=== PATIENT | female | born 1995 | race Hispanic/Latino ===

== ENCOUNTER 2019-05-30 20:06 | Emergency (ER) | payer OTHER, SELFPAY ==
--- OUTSIDE RECORDS SUMMARY | 2019-05-30 20:09 | XMS REPORT ---
:1995 Author Organization eClinicalWorks Care Team Providers Name Role Phone [facility] Provider Role Unavailable Allergies, Adverse Reactions, Alerts Substance Reaction Event Type N.K.D.A. 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
--- OUTSIDE RECORDS SUMMARY | 2019-05-30 20:09 | XMS REPORT ---
:1995 Author Organization eClinicalWorks Care Team Providers Name Role Phone [facility] Provider Role Unavailable Allergies, Adverse Reactions, Alerts Substance Reaction Event Type N.K.D.A. 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
[2019-05-30] MEDS ORDERED: SILVER SULFADIAZINE 1% 25 GM TOP ONE (20:44)
[2019-05-30] MEDS ORDERED: MORPHINE 4 MG/ML SYR ONE (20:44)
[2019-05-30] MEDS ORDERED: ONDANSETRON 4 MG (ODT) TAB ONE (20:44)
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
[2019-05-30 21:53] VITALS: TEMP 98.6
[2019-05-30 21:54] VITALS: BP 119/79; O2SAT 97
== END 2019-05-30 21:48 | disposition home or self-care (01) ==
LOC: ER 20:06
DX: T21.11XA Burn of first degree of chest wall, initial encounter (principal); T23.172A Burn of first degree of left wrist, initial encounter; T24.111A Burn of first degree of right thigh, initial encounter; T31.0 Burns involving less than 10% of body surface; X11.8XXA Contact with other hot tap-water, initial encounter; Y93.89 Activity, other specified; Y92.000 Kitchen of unspecified non-institutional (private) residence as the place of occurrence of the external cause
CPT/HCPCS: 96372; 99283

== ENCOUNTER 2020-10-04 08:37 | Emergency (ER) | payer SELFPAY ==
--- OUTSIDE RECORDS SUMMARY | 2020-10-04 08:38 | XMS REPORT | Continuity of Care Document ---
:1995 Author Organization [facility] Address [address] [place] [address] Care Team Providers Name Role Phone Unavailable Unavailable Unavailable Problems Condition Condition Condition Status Onset Resolution Last Treating Co mments Source Name Details Category Date Date Treatment Clinician Date Other Other Diagnosis Active [facility] Current Current Problem Active [facility] episode of episode of Me moria major major l depressive depressive Ou tpati disorder disorder ent without without Clinics prior prior episode episode Adult BMI Adult BMI Diagnosis Active [facility] 26.0-26.9 26.0-26.9 [facility] - kg/sq m kg/sq m [facility] Allergies, Adverse Reactions, Alerts This patient has no known allergies or adverse reactions. Medications This patient has no known medications. Immunizations Ordered Filled Immunization Date Status Comments [facility] e Immunization Name Name TDAP > 7 TDAP > 7 2018-07-[address] [facility] - Years-Adacel Years-Adacel 00:00:00 [facility] Procedures This patient has no known procedures. Encounters Start End Encounter Admission Attending Care Care Encounter Source Date/Time Date/Time Type Type Clinicians Facility Department ID 2018-07-22 2018-07-22 Outpatient Rachel Monterroso [id number] [facility] 13:45:00 13:45:00 New Body MD s [facility] 2018-07-01 2018-07-01 Outpatient Rachel [place] [id number] [facility] 09:15:00 09:15:00 t New Body MD s [facility] Family Medicine Medicine [facility] Clinics Results This patient has no known results.
[2020-10-04] MEDS ORDERED: HYDROCODONE/APAP 10/325 TAB ONE (10:23)
[2020-10-04] MEDS ORDERED: DIAZEPAM 5 MG TABLET ONE (10:24)
[2020-10-04] MEDS ORDERED: KETOROLAC 30 MG/ML INJ ONE (10:24)
--- NOTE | 2020-10-04 10:56 | RAD REPORT ---
EXAM DESCRIPTION: US - Extremity Venous Uni Ltd - 10/04/2020 10:48 am CLINICAL HISTORY: PAIN, swelling right leg COMPARISON: None. TECHNIQUE: Real-time sonographic evaluation of the right lower extremity deep venous systems was per formed. FINDINGS: Normal compressibility, flow augmentation, phasic flow and spontaneous flow are identified in the right lower extremity common femoral, superficial femoral, popliteal and posterior tibial vei ns. No intraluminal filling defects seen. IMPRESSION: No DVT in the right lower extremity.
--- NOTE | 2020-10-04 12:33 | RAD REPORT ---
EXAM DESCRIPTION: RAD - Lumbar Spine 3 Views - 10/04/2020 12:02 pm CLINICAL HISTORY: back pain COMPARISON: No comparisons FINDINGS: A three-view lumbar spine examination was performed. Lumbar bodies are normal in height and alignment. No fracture or acute bony process seen. No disc spa ce narrowing. No pars defects identified. IUD is in place. IMPRESSION: Negative Lumbar Spine examination.
--- NOTE | 2020-10-04 12:43 | EDPHYS ---
Physician Documentation [facility] Name: Joanna Lemons Age: 25 yrs Sex: Female : 1995 Arrival Date: 10/04/2020 Time: 08:40 Bed 24 Private MD: ED Physician Alex Rees HPI: 10/04 09:01 This 25 yrs old Female presents to ER via Ambulatory with complaints of Leg jmm Pain. 09:01 The patient presents with pain. Onset: The symptoms/episode began/occurred gradually, 2 jmm week(s) ago. Modifying factors: The symptoms are alleviated by remaining still, the symptoms are aggravated by movement. Associated signs and symptoms: Pertinent negatives calf tenderness, fever, numbness, swelling, tingling, vomiting, warmth, weakness. The patient has not experienced similar symptoms in the past. This is a 25 year old female with no chronic medical conditions that presents to the ED with complaints of right leg pain which radiates down to the level of the calf. 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 . 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 - Social history:: Smoking status: . ROS: 09:01 Constitutional: Negative for fever, chills, and weight loss, Cardiovascular: Negative jmm for chest pain, palpitations, and edema, Respiratory: Negative for shortness of breath, cough, wheezing, and pleuritic chest pain. 09:01 MS/extremity: Positive for pain. 09:01 All other systems are negative. Exam: 09:01 Constitutional: This is a well developed, well nourished patient who is awake, alert, jmm and in no acute distress. Head/Face: atraumatic. Eyes: EOMI, no conjunctival erythema appreciated ENT: Moist Mucus Membranes Neck: Trachea midline, Supple Chest/axilla: Normal chest wall appearance and motion. Cardiovascular: Regular rate and rhythm. No edema appreciated Respiratory: Normal respirations, no respiratory distress appreciated Abdomen/GI: Non distended, soft Back: Normal ROM Skin: General appearance color normal 09:01 Musculoskeletal/extremity: full dorsalis pulse to the right leg, positive straight leg raise, compartments are soft, NVI. 09:01 Skin: Appearance: Color: normal in color. 09:01 Neuro: Orientation: is normal, Mentation: is normal, Memory: is normal. 09:01 Psych: Behavior/mood is pleasant, cooperative. Vital Signs: 08:49 BP 113 / 73; Pulse 64; Resp 17; Temp 97.9(TE); Pulse Ox 100% on R/A; Weight 76.2 kg tw2 (R); Height 5 ft. 6 in. (167.64 cm); Pain 10/10; 10:05 BP 109 / 63; Pulse 63; Resp 16; Pulse Ox 100% on R/A; vg1 11:10 BP 113 / 76; Pulse 62; Resp 14; Pulse Ox 100% on R/A; vg1 12:19 BP 97 / 72; Pulse 60; Resp 14; Pulse Ox 99% on R/A; vg1 08:49 Body Mass Index 27.12 (76.20 kg, 167.64 cm) tw2 MDM: 09:01 Patient medically screened. [facility] 12:41 Data reviewed: vital signs, nurses notes. Counseling: I had a detailed discussion with cate the patient and/or guardian regarding: the historical points, exam findings, and any diagnostic results supporting the discharge/admit diagnosis, lab results, radiology results, the need for outpatient follow up, to return to the emergency department if symptoms worsen or persist or if there are any questions or concerns that arise at home. ED course: I do not suspect cord compression, cauda equina, DVT, abscess. Patient is advised to follow up with pcp and otherwise given strict return precautions. patient understood and agrees with the plan of care. . 10/04 10:03 Order name: US Extremity Venous Unilateral Ltd; Complete Time: 11:18 [facility] 10/04 11:01 Order name: Lumbar Spine (3 Views) XRAY; Complete Time: 12:37 [facility] Administered Medications: 10:11 Drug: Ketorolac 30 mg Route: IM; Site: right deltoid; vg1 11:13 Follow up: Response: No adverse reaction vg1 10:11 Drug: Valium (diazepam) 5 mg Route: PO; vg1 11:13 Follow up: Response: No adverse reaction vg1 10:11 Drug: Mongo (HYDROcodone-acetaminophen) 10 mg-325 mg 1 tabs Route: PO; vg1 11:13 Follow up: Response: No adverse reaction; Pain is decreased vg1 Disposition: 10/05 11:18 Co-signature as Attending Physician, Alex Rees MD I agree with the assessment and eben plan of care. Disposition: 10/04/20 12:42 Discharged to Home. Impression: Radiculopathy. - Condition is Stable. - Discharge Instructions: Sciatica, Nmqn-on-Cuap, Radicular Pain. - Prescriptions for Prednisone 20 mg Oral Tablet - take 3 tablet by ORAL route once daily for 5 days; 15 tablet. Ultracet 37.5- 325 mg Oral Tablet - take 1 tablet by ORAL route every 6 hours - for up to 5 days; do not exceed 8 tablets per day.; 12 tablet. Zanaflex 4 mg Oral Tablet - take 1 tablet by ORAL route every 8 hours As needed; 20 tablet. - Medication Reconciliation Form, Thank You Letter, Antibiotic Education, Prescription Opioid Use, Work release form form. - Follow up: Private Physician; When: 2 - 3 days; Reason: Recheck today's complaints, Continuance of care, Re-evaluation by your physician. Signatures: Dispatcher [employer] EDAlex Crews MD MD cha Mickail, Joel, PA PA jmm Wise, Tara, RN RN tw2 Faye Silva RN RN vg1 Corrections: (The following items were deleted from the chart) 10/04 13:10 12:42 10/04/2020 12:42 Discharged to Home. Impression: Radiculopathy. Condition is vg1 Stable. Forms are Medication Reconciliation Form, Thank You Letter, Antibiotic Education, Prescription Opioid Use. Follow up: Private Physician; When: 2 - 3 days; Reason: Recheck today's complaints, Continuance of care, Re-evaluation by your physician. cate
--- NOTE | 2020-10-04 12:43 | ER ---
Nurse's Notes [facility] Name: Joanna Lemons Age: 25 yrs Sex: Female : 1995 Arrival Date: 10/04/2020 Time: 08:40 Bed 24 Private MD: Diagnosis: Radiculopathy Presentation: 10/04 08:49 Chief complaint: Patient states: i have been having RIGHT leg pain, at first it was ok tw2 but it is getting worse. it has been harder for me to put weight on it. it started about 2 weeks ago. Coronavirus screen: At this time, the client does not indicate any symptoms associated with coronavirus-19. Ebola Screen: Patient denies travel to an Ebola-affected area in the 21 days before illness onset. Initial Sepsis Screen: Does the patient meet any 2 criteria? No. Patient's initial sepsis screen is negative. Does the patient have a suspected source of infection? No. Patient's initial sepsis screen is negative. Risk Assessment: Do you want to hurt yourself or someone else? Patient reports no desire to harm self or others. Onset of symptoms was October 04, 2020. 08:49 Method Of Arrival: Ambulatory tw2 08:49 Acuity: LUCY 4 tw2 Triage Assessment: 08:52 General: Appears in no apparent distress. Behavior is calm, cooperative, appropriate tw2 for age. Pain: Complains of pain in RIGHT buttocks, RIGHT leg, and RIGHT calf. Musculoskeletal: Circulation, motion, and sensation intact. Range of motion: intact in all extremities. RN PERINATAL: 09:05 LMP N/A - tw2 Historical: - Allergies: 08:51 No Known Allergies; tw2 - Home Meds: 08:51 None [Active]; tw2 - PMHx: 08:51 None; tw2 - PSHx: 08:51 ; tw2 - Immunization history:: Adult Immunizations. - Social history:: Smoking status: . Screenin:05 Abuse screen: Denies threats or abuse. Nutritional screening: No deficits noted. tw2 Tuberculosis screening: No symptoms or risk factors identified. Fall Risk None identified. Assessment: 10:05 General: Appears in no apparent distress. comfortable, Behavior is calm, cooperative. vg1 Pain: Complains of pain in right leg Pain currently is 10 out of 10 on a pain scale. Quality of pain is described as dull, Pain began about 2 weeks Alleviated by nothing. Aggravated by repositioning, weight bearing. Neuro: Level of Consciousness is awake, alert, obeys commands, Oriented to person, place, time, situation. Cardiovascular: Patient's skin is warm and dry. Respiratory: Airway is patent Respiratory effort is even, unlabored. GI: No signs and/or symptoms were reported involving the gastrointestinal system. : No signs and/or symptoms were reported regarding the genitourinary system. EENT: No signs and/or symptoms were reported regarding the EENT system. Derm: Skin is intact, is healthy with good turgor. Musculoskeletal: Circulation, motion, and sensation intact. 11:14 Reassessment: Patient appears in no apparent distress at this time. Patient and/or vg1 family updated on plan of care and expected duration. Pain level reassessed. Patient is alert, oriented x 3, equal unlabored respirations, skin warm/dry/pink. Patient states feeling better. 12:15 Reassessment: Patient appears in no apparent distress at this time. Patient and/or vg1 family updated on plan of care and expected duration. Pain level reassessed. Patient is alert, oriented x 3, equal unlabored respirations, skin warm/dry/pink. Patient states feeling better. 13:10 Reassessment: Patient appears in no apparent distress at this time. Patient and/or vg1 family updated on plan of care and expected duration. Pain level reassessed. Patient is alert, oriented x 3, equal unlabored respirations, skin warm/dry/pink. Vital Signs: 08:49 BP 113 / 73; Pulse 64; Resp 17; Temp 97.9(TE); Pulse Ox 100% on R/A; Weight 76.2 kg tw2 (R); Height 5 ft. 6 in. (167.64 cm); Pain 10/10; 10:05 BP 109 / 63; Pulse 63; Resp 16; Pulse Ox 100% on R/A; vg1 11:10 BP 113 / 76; Pulse 62; Resp 14; Pulse Ox 100% on R/A; vg1 12:19 BP 97 / 72; Pulse 60; Resp 14; Pulse Ox 99% on R/A; vg1 08:49 Body Mass Index 27.12 (76.20 kg, 167.64 cm) tw2 ED Course: 08:40 Patient arrived in ED. mr 08:51 Triage completed. tw2 08:51 Arm band placed on. tw2 09:00 Bed in low position. Call light in reach. tw2 09:01 Alex Rees MD is Attending Physician. eben 09:27 Darius Patricia PA is PHCP. [facility] 09:37 Lillian Velasco, RN is Primary Nurse. 09:57 Primary Nurse role handed off by Lillian Velasco RN vg1 09:57 Faye Silva RN is Primary Nurse. vg1 10:48 US Extremity Venous Unilateral Ltd In Process Unspecified. EDMS 11:54 Lumbar Spine (3 Views) XRAY In Process Unspecified. EDMS 13:10 No provider procedures requiring assistance completed. Patient did not have IV access vg1 during this emergency room visit. Administered Medications: 10:11 Drug: Ketorolac 30 mg Route: IM; Site: right deltoid; vg1 11:13 Follow up: Response: No adverse reaction vg1 10:11 Drug: Valium (diazepam) 5 mg Route: PO; vg1 11:13 Follow up: Response: No adverse reaction vg1 10:11 Drug: [place] (HYDROcodone-acetaminophen) 10 mg-325 mg 1 tabs Route: PO; vg1 11:13 Follow up: Response: No adverse reaction; Pain is decreased vg1 Outcome: 12:42 Discharge ordered by . [facility] 13:10 Discharged to home ambulatory. vg1 13:10 Condition: stable 13:10 Discharge instructions given to patient, Instructed on discharge instructions, follow up and referral plans. medication usage, Demonstrated understanding of instructions, follow-up care, medications, Prescriptions given X 3. 13:10 Patient left the ED. vg1 Signatures: Dispatcher [employer] EDMS Alex Rees MD MD cha Mickail, Joel, PA PA jm Fabiano Grcae mr Lillian Velasco, Shahida Gomez RN, RN RN tw2 Faye Silva RN RN vg1
[2020-10-04 13:14] VITALS: TEMP 97.9
[2020-10-04 13:19] VITALS: BP 97/72; O2SAT 99
== END 2020-10-04 13:10 | disposition home or self-care (01) ==
LOC: ER 08:37
DX: M54.10 Radiculopathy, site unspecified (principal)
CPT/HCPCS: 72100; 93971; 96372; 99283